=== PATIENT | male | born 2000 | race Caucasian/White ===

== ENCOUNTER → 2023-11-09 08:21 | Outpatient (REF) | payer BC, SELFPAY | LOC: RAD 08:21 | PROVIDERS: ATTENDING PHYSICIAN Internal Medicine | DX: R22.2 Localized swelling, mass and lump, trunk (principal) | CPT/HCPCS: 76536 ==

== ENCOUNTER → 2024-04-03 12:43 | Outpatient (REF) | payer BC, SELFPAY | LOC: RAD 12:43 | PROVIDERS: ATTENDING PHYSICIAN Surgery; FAMILY PHYSICIAN Internal Medicine | DX: R35.0 Frequency of micturition (principal) | CPT/HCPCS: 76770 ==